=== PATIENT | female | born 1960 | race Two or more races ===

== ENCOUNTER 2024-07-05 13:35 | Emergency (ER) | payer MEDICARE ==
[~2024-07-05] VITALS: Ht 170.2 cm; Wt 62.2 kg
[2024-07-05 15:51] VITALS: BP 133/92; PULSE 66; RESP 14; TEMP 98.2; O2SAT 95
== END 2024-07-05 15:54 | disposition home or self-care (01) ==
LOC: ER 13:35
DX: S62.511A Displaced fracture of proximal phalanx of right thumb, initial encounter for closed fracture (principal); X58.XXXA Exposure to other specified factors, initial encounter; Y93.89 Activity, other specified; Y92.89 Other specified places as the place of occurrence of the external cause; Y99.8 Other external cause status
CPT/HCPCS: 29125

== ENCOUNTER → 2025-03-14 | Outpatient (CLI) | payer MEDICARE, OTHER ==
[2025-03-14 07:14] LABS: Basophils # (auto) 0.1 10 ^3/uL (0-0.2); Eosinophils # (auto) 0.4 10 ^3/uL (0-0.8); Eosinophils % (auto) 6.2 % (0.0-7.0); Hematocrit 42.6 % (36.0-46.0); Hemoglobin 14.5 g/dL (12.2-16.2); Lymphocytes # (auto) 2.5 10 ^3/uL (0.4-5.4); Lymphocytes % (auto) 36.7 % (10.0-50.0); Mean Corpuscular Hgb Conc. 34.2 g/dL (32.0-36.0); Mean Corpuscular Volume 93.5 fL (80.0-100.0); Monocytes # (auto) 0.4 10 ^3/uL (0-1.3); Monocytes % (auto) 5.9 % (0.0-12.0); Neutrophils # (auto) 3.5 10 ^3/uL (1.6-8.6); Neutrophils % (auto) 50.2 % (37.0-80.0); Nucleated Red Blood Cells % 0.1 %; Platelet Count (auto) 257 10^3/uL (140-450); Red Blood Cells 4.55 10^6/uL (4.0-5.20); Red Cell Distribution Width 13.3 % (11.8-14.3); White Blood Cell 6.9 10^3/uL (4.4-10.8)
[2025-03-14 08:19] LABS: Alanine Aminotransferase 29 U/L (7-40); Albumin 4.4 g/dL (3.2-4.8); Alkaline Phosphatase 77 U/L (46-116); Anion Gap 4 (5-15); Aspartate Aminotransferase 24 U/L (13-40); BUN/Creatinine Ratio 15.1 (10.0-20.0); Bilirubin, Total 0.4 mg/dL (0.2-1.0); Blood Urea Nitrogen 11 mg/dL (9-23); Calcium 9.9 mg/dL (8.7-10.4); Chloride 107 mmol/L (98-107); Cholesterol 147 mg/dL (< 200); Glucose 84 mg/dL (74-106); HDL Cholesterol 57 mg/dL (40-59); LDL Cholesterol 62 mg/dL (< 100); Potassium 4.2 mmol/L (3.5-5.1); Sodium 143 mmol/L (136-145); Total Protein 6.4 g/dL (5.7-8.2)
[2025-03-14 08:20] LABS: Bilirubin, Direct < 0.1 mg/dL (<0.3); Carbon Dioxide 32 mmol/L (20-31); Triglycerides 231 mg/dL (< 150)
== END | disposition home or self-care (01) ==
LOC: LAB 06:23
PROVIDERS: ATTEND Specialist
DX: R73.09 Other abnormal glucose (principal); R68.89 Other general symptoms and signs; E03.9 Hypothyroidism, unspecified; D64.9 Anemia, unspecified; I10 Essential (primary) hypertension; E78.5 Hyperlipidemia, unspecified
CPT/HCPCS: 36415; 80053; 80061; 82248; 83036; 84443; 85025

== ENCOUNTER 2025-05-12 06:14 | Outpatient (CLI) | payer MEDICARE, OTHER ==
[2025-05-12 06:37] LABS: Basophils # (auto) 0 10 ^3/uL (0-0.2); Basophils % (auto) 0.5 % (0.0-2.0); Eosinophils # (auto) 0.3 10 ^3/uL (0-0.8); Eosinophils % (auto) 3.5 % (0.0-7.0); Lymphocytes # (auto) 1.6 10 ^3/uL (0.4-5.4); Lymphocytes % (auto) 20.7 % (10.0-50.0); Mean Corpuscular Hemoglobin 31.9 pg (28.0-32.0); Mean Corpuscular Hgb Conc. 34.2 g/dL (32.0-36.0); Mean Corpuscular Volume 93.4 fL (80.0-100.0); Monocytes # (auto) 0.5 10 ^3/uL (0-1.3); Neutrophils # (auto) 5.1 10 ^3/uL (1.6-8.6); Neutrophils % (auto) 68.3 % (37.0-80.0); Platelet Count (auto) 249 10^3/uL (140-450); Red Blood Cells 4.39 10^6/uL (4.0-5.20); Red Cell Distribution Width 13.7 % (11.8-14.3); White Blood Cell 7.5 10^3/uL (4.4-10.8)
[2025-05-12 07:02] LABS: Alanine Aminotransferase 28 U/L (7-40); Albumin 4.4 g/dL (3.2-4.8); Alkaline Phosphatase 83 U/L (46-116); Anion Gap 7 (5-15); Aspartate Aminotransferase 27 U/L (<34); BUN/Creatinine Ratio 14.7 (10.0-20.0); Bilirubin, Direct 0.2 mg/dL (<0.3); Bilirubin, Total 0.5 mg/dL (0.2-1.0); Blood Urea Nitrogen 11 mg/dL (9-23); Calcium 10.2 mg/dL (8.7-10.4); Carbon Dioxide 30 mmol/L (20-31); Cholesterol 152 mg/dL (< 200); Glucose 93 mg/dL (74-106); HDL Cholesterol 54 mg/dL (40-59); LDL Cholesterol 84 mg/dL (< 100); Potassium 3.9 mmol/L (3.5-5.1); Total Protein 6.5 g/dL (5.7-8.2); Triglycerides 131 mg/dL (< 150)
[2025-05-12 07:05] LABS: Chloride 109 mmol/L (98-107); Sodium 146 mmol/L (136-145)
== END 2025-05-12 17:00 | disposition home or self-care (01) ==
LOC: LAB 06:14
PROVIDERS: ATTEND Specialist
DX: I10 Essential (primary) hypertension (principal); E11.9 Type 2 diabetes mellitus without complications; E78.5 Hyperlipidemia, unspecified; R73.09 Other abnormal glucose; R68.89 Other general symptoms and signs; E03.9 Hypothyroidism, unspecified; D64.9 Anemia, unspecified
CPT/HCPCS: 36415; 80053; 80061; 82248; 83036; 84443; 85025

== ENCOUNTER 2025-05-16 10:36 | Emergency (ER) | payer MEDICARE, OTHER ==
[~2025-05-16] VITALS: Ht 170.2 cm; Wt 53.1 kg
--- NOTE | 2025-05-16 11:57 | ED.PDOC ---
History of Present Illness HPI Comments 64-year-old female presents with a chief complaint of right lower extremity pain x 2 months. Patient states that her pain is localized to her right hamstring and behind her right knee. Patient reports that she has had a DVT before and is concerned about getting another one. Patient is requesting an ultrasound. Patient is on blood thinners due to a stent procedure in the past. Pain rated as moderate Therapies tried: none Denies CP/SOB Chief Complaint: Extremity Swelling Time Seen by MD: 11:44 Primary Care Provider: MARIANNE FRASER Reviewed Notes: Medications, Allergies Allergies: Coded Allergies: NO KNOWN ALLERGIES (Unverified , 07/05/24) Information Source: Patient Mode of Arrival: Ambulatory Severity: Moderate Timing: Months Duration: Since onset Prehospital treatment: None Past Medical History PAST MEDICAL HISTORY: Cancer Surgical History: Denies all surgeries GENERAL OFFICE DISPATCHER History: Denies all GENERAL OFFICE DISPATCHER Hx Family History Family History: Reviewed,noncontributory to illness Social History Smoker: Cigarettes, Less Than 1 Pack/Day Alcohol: Denies ETOH Use Drugs: Denies Drug Use Lives In: Home All Other Systems: Reviewed and Negative ( PER HPI) Physical Exam General Appearance: No Apparent Distress, Normal HEENT: Normal ENT Inspection, Pharynx Normal, TMs Normal Neck: Full Range of Motion, Non-Tender, Normal, Normal Inspection Respiratory: Chest Non-Tender, Lungs Clear, No Accessory Muscle Use, No Respiratory Distress, Normal Breath Sounds Cardiovascular: No Edema, No JVD, No Murmur, No Gallop, Normal Peripheral Pulses, Regular Rate/Rhythm Breast Exam: Deferred Gastrointestinal: No Organomegaly, Non Tender, No Pulsatile Mass, Normal Bowel Sounds, Soft Genitalia: Deferred Pelvic: Deferred Rectal: Deferred Extremities: No calf tenderness, Normal capillary refill, Normal inspection, Normal range of motion, Non-tender, No pedal edema, Other (NO GROSS ABNORMALITIES, NO EDEMA, NO ERYTHEMA.) Musculoskeletal : Apperance: Normal Neurologic: Alert, 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 Was a procedure done?: No Differential Dx Considerations may include: dvt, thrombophlebitis, strain, X-Ray, Labs, Meds, VS Vital Signs Date Time Temp Pulse Resp B/P (MAP) Pulse Ox O2 Delivery O2 Flow Rate FiO2 05/16/25 11:04 68 05/16/25 10:52 98.8 76 16 165/87 (113) 96 98.8 X-Ray, Labs, Meds, VS Comment 64-year-old female presents with a chief complaint of right lower extremity pain x 2 months. Patient arrives alert and oriented, ABC's intact, afebrile, vital signs stable, saturating well in room air Diagnostic imaging ordered by me and results interpreted by radiology : CHEST X- RAY, DVT US RLE The patient presents with signs and symptoms concerning for deep venous thromb osis. The differential diagnosis includes but is not limited to: DVT, thrombophlebitis, trauma, venous stasis, peripheral edema, cellulitis. Patients work up was negative The patient was overall stable while in the ED. They had normal oxygenation on room air and did not require any supplemental oxygen. Heart rate has remained stable while in the ED. Nontoxic appearing. No lymphangitic spread visible. No fluid pockets or fluctuance concerning for abscess. Low concern for cellulitis or osteomyelitis. All questions answered. The patient was given strict return precautions to ED for shortness of breath, increasing pain, paresthesia, or change in color of their extremity. The patient was advised to follow up with primary care provider for re-evaluation and continued management. Additional MDM Review of External, Non-ED records: External records reviewed. Discussion with independent historian (EMS, family) history obtained from the patient/parents (if applicable) at bedside Chronic conditions affecting care: None Social determinants of health affecting care: None Consideration of admission (observation or admission): I considered escalation of care to admission for this patient, however given the reassuring workup, the patient is safe for outpatient management. Time of 1ST Reevaluation: 12:14 Reevaluation 1ST: Unchanged Time of 2ND Reevaluation: 13:20 Patient Education/Counseling: Diagnosis, Treatment Family Education/Counseling: Diagnosis, Treatment SEPSIS Sepsis Screen Physician Orders Electrocardigram (05/16/25 11:13) Complete Blood Count (05/16/25 11:48) Basic Metabolic Panel (05/16/25 11:48) Chest Two Views Routine (05/16/25 11:48) Rt Lower Dvt (05/16/25 11:48) Vital Signs Date Time Temp Pulse Resp B/P (MAP) Pulse Ox O2 Delivery O2 Flow Rate FiO2 05/16/25 11:04 68 05/16/25 10:52 98.8 76 16 165/87 (113) 96 98.8 Departure 1 Departure Time of Disposition: 13:21 Impression: Primary Impression: Leg pain Qualified Codes: M79.604 - Pain in right leg Additional Impression: Cough Qualified Codes: R05.1 - Acute cough Disposition: 01 HOME / SELF CARE / HOMELESS Condition: Fair e-Prescriptions Benzonatate (Benzonatate) 100 Mg Cap 1 CAP PO TID for 10 Days, #30 CAP 0 Refills Prov: JORGE ADDISON MANAGER CREATIVE 05/16/25 Critical Care Note Critical Care Time?: No Stability Stability form required: No Heart Score Heart Score: Heart Score Response (Comments) Value History N/A 0 EKG N/A 0 Age N/A 0 Risk Factors N/A 0 Troponin N/A 0 Total 0 I personally scribed for JORGE ADDISON NP ([email or web address]) on 05/16/25 at 11:57. Electronically submitted by Mario Decker ([email or web address]). JORGE ADDISON NP May 16, 2025 11:57
--- NOTE | 2025-05-16 12:22 | DVH ---
XY CHEST TWO VIEWS ROUTINE, HISTORY: cough, r/o pna COMPARISON: None None TECHNICAL DATA: 2 view of the chest was obtained. FINDINGS: Lines and tubes: None Cardiomediastinal silhouette: normal Pulmonary vasculature: normal Lung expansion: normal Lung airspace: normal Lung interstitium: normal Pleura: normal Pneumothorax: no Bones: Unremarkable Other: no IMPRESSION: No acute intrathoracic abnormality.
--- NOTE | 2025-05-16 12:40 | DVH ---
Right lower extremity venous duplex Clinical History: sudden posterior leg pain Comparison: None Technique: Duplex Doppler evaluation of the deep venous system of the right lower extremity from the common femo ral vein to the popliteal vein including color Doppler and spectral/pulsed waveform analysis was perf ormed. Findings: The common femoral vein demonstrates appropriate compressibility and waveform variability. There is compressibility/patency of the great saphenous vein at the proximal thigh. The femoral vein demonstrates appropriate compressibility and waveform variability. The deep femoral vein demonstrates appropriate compressibility and waveform variability. The popliteal vein demonstrates appropriate compressibility and waveform variability. There is normal compressibility at the tibioperoneal trunk. Impression: No right femoropopliteal venous thrombosis.
[2025-05-16] MEDS ORDERED: BENZ100C97 PO (13:22)
[2025-05-16 13:47] VITALS: BP 141/75; PULSE 99; RESP 18; TEMP 98.3; O2SAT 96
--- NOTE | 2025-05-17 06:56 | ECG ---
[facility] Test Date: 2025-05-16 Test Time: 11:04:31 Pat Name: BEATRIZ DAVILA Department: ED Room: Gender: F Composition Professor: TAMI : [id number] Requested By: JORGE ADDISON Order Number: [id number] Reading MD: Measurements Intervals [place] Rate: 68 P: 86 HI: 186 QRS: 80 QRSD: 70 T: 76 QT: 399 QTc: 425 Interpretive Statements Sinus rhythm Biatrial enlargement Please click the below link to view image of tracing.
== END 2025-05-16 13:52 | disposition home or self-care (01) ==
LOC: ER 10:36
DX: M79.661 Pain in right lower leg (principal); R05.9 Cough, unspecified; F17.210 Nicotine dependence, cigarettes, uncomplicated
CPT/HCPCS: 71046; 93005; 93971

== ENCOUNTER 2025-06-30 06:41 | Outpatient (CLI) | payer MEDICARE, OTHER ==
[~2025-06-30 06:41] MED LIST: BENZ100C97 PO
[2025-06-30 07:18] LABS: Hematocrit 37.3 % (36.0-46.0); Hemoglobin 12.8 g/dL (12.2-16.2); Mean Corpuscular Hemoglobin 32.7 pg (28.0-32.0); Mean Corpuscular Volume 95.1 fL (80.0-100.0); Nucleated Red Blood Cells % 0.0 %
[2025-06-30 08:27] LABS: Alanine Aminotransferase 42 U/L (7-40); Albumin 4.2 g/dL (3.2-4.8); Alkaline Phosphatase 71 U/L (46-116); Anion Gap 4 (5-15); BUN/Creatinine Ratio 19.4 (10.0-20.0); Bilirubin, Direct 0.1 mg/dL (<0.3); Bilirubin, Total 0.4 mg/dL (0.2-1.0); Blood Urea Nitrogen 14 mg/dL (9-23); Calcium 9.2 mg/dL (8.7-10.4); Carbon Dioxide 31 mmol/L (20-31); Chloride 110 mmol/L (98-107); Cholesterol 132 mg/dL (< 200); Glucose 83 mg/dL (74-106); HDL Cholesterol 54 mg/dL (40-59); Potassium 3.9 mmol/L (3.5-5.1); Sodium 145 mmol/L (136-145); Total Protein 5.9 g/dL (5.7-8.2); Triglycerides 90 mg/dL (< 150)
== END 2025-06-30 17:00 | disposition home or self-care (01) ==
LOC: LAB 06:41
PROVIDERS: ATTEND Internal Medicine
DX: I11.0 Hypertensive heart disease with heart failure (principal); I50.9 Heart failure, unspecified; E78.5 Hyperlipidemia, unspecified; E03.9 Hypothyroidism, unspecified; E11.9 Type 2 diabetes mellitus without complications; D64.9 Anemia, unspecified; R68.89 Other general symptoms and signs
CPT/HCPCS: 36415; 80053; 80061; 82248; 83036; 84443; 85025

== ENCOUNTER 2025-08-10 15:07 | Emergency (ER) | payer MEDICARE, OTHER ==
[~2025-08-10] VITALS: Ht 170.2 cm; Wt 53.1 kg
--- NOTE | 2025-08-10 15:30 | ED.PDOC ---
HPI Comments This is a 64 year old female presenting to the ED with chief complaint of chest pain. Patient reports that she has been experiencing intermittent left sided chest pains for the past month. Patient relays that she usually uses NTG with relief noted, however, it has not worked as of recently. Patient states that she has associated fatigue, worrying her to come into the ED. Patient states she has not contacted her manager mechanical regarding her concern. Patient denies any SOB, d izziness, headache, syncope, fever, or abdominal pain. Chief Complaint: Chest Pain Time Seen by MD: 15:28 Primary Care Provider: MARIANNE FRASER Reviewed Notes: Nurses Notes, Medications, Allergies Allergies: Coded Allergies: NO KNOWN ALLERGIES (Unverified , 07/05/24) Home Meds Active Scripts Benzonatate (Benzonatate) 100 Mg Cap, 1 CAP PO TID for 10 Days, #30 CAP 0 Refills Prov:AZAELJORGE BINDING STITCHER 05/16/25 Information Source: Patient, Spouse Mode of Arrival: Ambulatory Severity: Moderate Timing: Months Duration: Since onset Prehospital treatment: None Location: Chest (L) Radiation: No Radiation Quality: Sharp Onset: At Rest Cardiac Risk Factors: Smoker, Hyperlipidemia, HTN History of: Similar pain in past, SD Past Medical History PAST MEDICAL HISTORY: Cancer, High Lipids, HTN, SD Past Medical History (Other): Scoliosis Surgical History: PTCA INCIDENT HANDLER History: Denies all INCIDENT HANDLER Hx Family History Family History: Reviewed,noncontributory to illness Social History Smoker: Cigarettes, Less Than 1 Pack/Day Alcohol: Denies ETOH Use Drugs: Denies Drug Use Lives In: Home Constitutional: reports: fatigue; denies: chills, diaphoresis, fever, malaise, sweats, weakness, others EENTM: denies: blurred vision, double vision, ear bleeding, ear discharge, ear drainage, ear pain, ear ringing, eye pain, eye redness, hearing loss, mouth pain, mouth swelling, nasal discharge, nose bleeding, nose congestion, nose pain, photophobia, tearing, throat pain, throat swelling, voice changes, others Respiratory: denies: cough, hemoptysis, orthopnea, SOB at rest, shortness of breath, SOB with excertion, stridor, wheezing, others Cardiovascular: reports: chest pain; denies: dizzy spells, diaphoresis, Dyspnea on exertion, edema, irregular heart beat, left arm pain, lightheadedness, palpitations, PND, syncope, others Gastrointestinal: denies: abdomen distended, abdominal pain, blood streaked bowels, constipated, diarrhea, dysphagia, difficulty swallowing, hematemesis, melena, nausea, poor appetite, poor fluid intake, rectal bleeding, rectal pain, vomiting, others Genitourinary: denies: abnormal vagina bleeding, burning, dyspareunia, dysuria, flank pain, frequency, hematuria, incontinence, pain, , vagina discharge, urgency, others Neurological: denies: dizziness, fainting, headache, left sided numbness, left sided weakness, numbness, paresthesia, pre-existing deficit, right sided numbness, right sided weakness, seizure, speech problems, tingling, tremors, weakness, others Musculoskeletal: denies: back pain, gout, joint pain, joint swelling, muscle pain, muscle stiffness, neck pain, others Integumetry: denies: bruises, change in color, change in hair/nails, dryness, laceration, lesions, lumps, rash, wounds, others Allergic/Immunocompromised: denies: Difficulty Healing, Frequent Infections, Hives, Itching, others Hematologic/Lymphatic: denies: anemia, blood clots, easy bleeding, easy bruising, swollen glands, others Endocrine: denies: excessive hunger, excessive sweating, excessive thirst, excessive urination, flushing, intolerance to cold, intolerance to heat, unexplained weight gain, unexplained weight loss, others Psychiatric: denies: anxiety, bipolar disorder, depression, hopeless, panic disorder, schizophrenia, sleepless, suicidal, others All Other Systems: Reviewed and Negative Physical Exam General Appearance: No Apparent Distress, Normal HEENT: Normal ENT Inspection, Pharynx Normal, TMs Normal Neck: Full Range of Motion, Non-Tender, Normal, Normal Inspection Respiratory: Chest Non-Tender, Lungs Clear, No Accessory Muscle Use, No Respiratory Distress, Normal Breath Sounds Cardiovascular: No Edema, No JVD, No Murmur, No Gallop, Normal Peripheral Pulses, Regular Rate/Rhythm Breast Exam: Deferred Gastrointestinal: No Organomegaly, Non Tender, No Pulsatile Mass, Normal Bowel Sounds, Soft Genitalia: Deferred Pelvic: Deferred Rectal: Deferred Extremities: No calf tenderness, Normal capillary refill, Normal inspection, Normal range of motion, Non-tender, No pedal edema Musculoskeletal : Apperance: Normal Neurologic: Alert, middle school reading teacher II-XII nml as Tested, No Motor Deficits, Normal Affect, Normal Mood, No Sensory Deficits Cerebellar Function: Normal Reflexes: Normal Skin: Dry, Normal Color, Warm Lymphatic: No Adenopathy Was a procedure done? Was a procedure done?: No X-Ray, Labs, Meds, VS Vital Signs Date Time Temp Pulse Resp B/P (MAP) Pulse Ox O2 Delivery O2 Flow Rate FiO2 08/10/25 15:11 97.4 84 16 129/64 95 97.4 Time of 1ST Reevaluation: 16:27 Reevaluation 1ST: Unchanged Patient Education/Counseling: Diagnosis, Treatment Family Education/Counseling: Diagnosis, Treatment SEPSIS Sepsis Screen Date sepsis recognized/suspect: Aug 10, 2025 Time Sepsis recognized/suspect: 1513 Recent Procedure: No On Antibiotic Therapy: No Respiratory Rate >20: No Heart Rate >90: No Temp<36 C (96.8 F) or >38.3 C: No SBP <90 or MAP <65 mmHG: No New Acute Mental Status Change: No Is the patient on CPAP, BIPAP,: No Physician Orders Electrocardigram (08/10/25 15:08) Troponin-I Hs (08/10/25 15:08) Electrocardigram (08/10/25 16:08) Electrocardigram (08/10/25 18:08) Troponin-I Hs (08/10/25 16:08) Troponin-I Hs (08/10/25 18:08) Complete Blood Count (08/10/25 15:23) Basic Metabolic Panel (08/10/25 15:23) Urinalysis (08/10/25 15:23) Drug Screen (08/10/25 15:23) Vital Signs Date Time Temp Pulse Resp B/P (MAP) Pulse Ox O2 Delivery O2 Flow Rate FiO2 08/10/25 15:11 97.4 84 16 129/64 95 97.4 Critical Care Note Critical Care Time?: No Stability Stability form required: No Heart Score Heart Score: Heart Score Response (Comments) Value History Highly Suspicious 2 EKG Normal 0 Age >65 2 Risk Factors >3 or Hx ASHD 2 Total 6 I personally scribed for BE ROSS MD ([email or web address]) on 08/10/25 at 15:30. Electronically submitted by Tio Solares ([email or web address]). I personally scribed for BE ROSS MD ([email or web address]) on 08/10/25 at 15:32. Electronically submitted by Tio Solares ([email or web address]). BE ROSS MD Aug 10, 2025 15:30
--- NOTE | 2025-08-10 15:34 | ED.PDOC ---
HPI Comments This is a 64 year old female presenting to the ED with chief complaint of chest pain. Patient reports that she has been experiencing intermittent left sided chest pains for the past month. Patient relays that she usually uses NTG with relief noted, however, it has not worked as of recently. Patient states that she has associated fatigue, worrying her to come into the ED. Patient states she has not contacted her benefits assistant regarding her concern. Patient denies any SOB, d izziness, headache, syncope, fever, or abdominal pain. Vital signs were stable at arrival. Chief Complaint: Chest Pain Time Seen by MD: 15:32 Primary Care Provider: MARIANNE FRASER Reviewed Notes: Nurses Notes, Medications, Allergies Allergies: Coded Allergies: NO KNOWN ALLERGIES (Unverified , 07/05/24) Home Meds Active Scripts Benzonatate (Benzonatate) 100 Mg Cap, 1 CAP PO TID for 10 Days, #30 CAP 0 Refills Prov:JORGE ADDISON Sherry ELECTRICAL CAD TECHNICIAN 05/16/25 Information Source: Patient, Friend, Spouse Mode of Arrival: Ambulatory Severity: Moderate Timing: Months Duration: Since onset Prehospital treatment: None Location: Chest (L) Quality: Sharp Onset: At Rest Cardiac Risk Factors: Smoker, Hyperlipidemia, HTN History of: Similar pain in past, [place] Associated Signs and Symptoms: Other (Fatigue) Past Medical History PAST MEDICAL HISTORY: Cancer, High Lipids, HTN, [place] Past Medical History (Other): Scoliosis 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 Hx Family History Family History: Reviewed,noncontributory to illness Social History Smoker: Cigarettes, Less Than 1 Pack/Day Alcohol: Denies ETOH Use Drugs: Denies Drug Use Lives In: Home Constitutional: reports: fatigue; denies: chills, diaphoresis, fever, malaise, sweats, weakness, others EENTM: denies: blurred vision, double vision, ear bleeding, ear discharge, ear drainage, ear pain, ear ringing, eye pain, eye redness, hearing loss, mouth pain, mouth swelling, nasal discharge, nose bleeding, nose congestion, nose pain, photophobia, tearing, throat pain, throat swelling, voice changes, others Respiratory: denies: cough, hemoptysis, orthopnea, SOB at rest, shortness of breath, SOB with excertion, stridor, wheezing, others Cardiovascular: reports: chest pain; denies: dizzy spells, diaphoresis, Dyspnea on exertion, edema, irregular heart beat, left arm pain, lightheadedness, palpitations, PND, syncope, others Gastrointestinal: denies: abdomen distended, abdominal pain, blood streaked bowels, constipated, diarrhea, dysphagia, difficulty swallowing, hematemesis, melena, nausea, poor appetite, poor fluid intake, rectal bleeding, rectal pain, vomiting, others Genitourinary: denies: abnormal vagina bleeding, burning, dyspareunia, dysuria, flank pain, frequency, hematuria, incontinence, pain, , vagina discharge, urgency, others Neurological: denies: dizziness, fainting, headache, left sided numbness, left sided weakness, numbness, paresthesia, pre-existing deficit, right sided numbness, right sided weakness, seizure, speech problems, tingling, tremors, weakness, others Musculoskeletal: denies: back pain, gout, joint pain, joint swelling, muscle pain, muscle stiffness, neck pain, others Integumetry: denies: bruises, change in color, change in hair/nails, dryness, laceration, lesions, lumps, rash, wounds, others Allergic/Immunocompromised: denies: Difficulty Healing, Frequent Infections, Hives, Itching, others Hematologic/Lymphatic: denies: anemia, blood clots, easy bleeding, easy bruising, swollen glands, others Endocrine: denies: excessive hunger, excessive sweating, excessive thirst, excessive urination, flushing, intolerance to cold, intolerance to heat, unexplained weight gain, unexplained weight loss, others Psychiatric: denies: anxiety, bipolar disorder, depression, hopeless, panic disorder, schizophrenia, sleepless, suicidal, others All Other Systems: Reviewed and Negative Physical Exam General Appearance: Moderate Distress ([id number] distress due to chest pain concerns.), Normal HEENT: Normal ENT Inspection, Pharynx Normal, TMs Normal Neck: Full Range of Motion, Non-Tender, Normal, Normal Inspection Respiratory: Lungs Clear, No Accessory Muscle Use, No Respiratory Distress, Normal Breath Sounds, Other (Diffuse substernal chest pain radiating towards the left shoulder. No signs of trauma. Unable to elicit additional pain on palpation.) Cardiovascular: No Edema, No JVD, No Murmur, No Gallop, Normal Peripheral Pulses, Regular Rate/Rhythm Breast Exam: Deferred Gastrointestinal: No Organomegaly, Non Tender, No Pulsatile Mass, Normal Bowel Sounds, Soft Genitalia: Deferred Pelvic: Deferred Rectal: Deferred Extremities: No calf tenderness, Normal capillary refill, Normal inspection, Normal range of motion, Non-tender, No pedal edema Musculoskeletal : Apperance: Normal Neurologic: Alert, No Motor Deficits, Normal Affect, Normal Mood, No Sensory Deficits Cerebellar Function: NOT DONE Reflexes: NOT DONE Skin: Dry, Normal Color, Warm Lymphatic: No Adenopathy Was a procedure done? Was a procedure done?: No CP Differential Dx Differential Diagnosis: A-fib, AV Block 1st Degree, [place] Differential Diagnosis: CHF, HTN Essential Differential Diagnosis: Angina, Chest Wall Pain, Costochondritis X-Ray, Labs, Meds, VS Vital Signs Date Time Temp Pulse Resp B/P (MAP) Pulse Ox O2 Delivery O2 Flow Rate FiO2 08/10/25 18:30 122/45 08/10/25 18:02 70 08/10/25 16:02 68 08/10/25 15:17 71 08/10/25 15:11 97.4 84 16 129/64 95 97.4 Lab Test 08/10/25 17:17 08/10/25 16:30 08/10/25 15:30 Range/Units Urine Color Yellow Yellow Urine Clarity Turbid H Clear Urine pH 6.0 5.0-9.0 Urine Specific [place] 1.021 1.001-1.035 Urine Protein 1+ H Negative Urine Ketones Trace Negative Urine Blood Negative Negative /uL Urine Nitrite Negative Negative Urine Bilirubin Negative Negative Urine Urobilinogen 2 H Negative mg/dL Urine Leukocyte Esterase Negative Negative /uL Urine RBC 2 0 - 4 /hpf Urine Microscopic WBC 5 0-5 /HPF Urine Squamous Epithelial Cells Few <5 /hpf Urine Bacteria Few H None Seen /hpf Urine Hyaline Casts Few 0 - 2 /lpf Urine Mucus Few None Seen Urine Glucose Normal Normal mg/dL Urine Opiates Screen Neg NEGATIVE Urine Fentanyl Screen Neg NEGATIVE Urine Barbiturates Screen Neg NEGATIVE Urine Phencyclidine Screen Neg NEGATIVE Urine Amphetamines Screen Neg NEGATIVE Urine Benzodiazepines Screen Neg NEGATIVE Urine Cocaine Screen Neg NEGATIVE Urine Cannabinoids Screen Neg NEGATIVE Troponin I High Sensitivity 5 5 </=34 ng/L White Blood Count 10.1 4.4-10.8 10^3/uL Red Blood Count 4.52 4.0-5.20 10^6/uL Hemoglobin 14.7 12.2-16.2 g/dL Hematocrit 42.5 36.0-46.0 % Mean Corpuscular Volume 93.9 80.0-100.0 fL Mean Corpuscular Hemoglobin 32.4 H 28.0-32.0 pg Mean Corpuscular Hemoglobin Concent 34.5 32.0-36.0 g/dL Red Cell Distribution Width 13.0 11.8-14.3 % Platelet Count 267 140-450 10^3/uL Mean Platelet Volume 7.9 6.9-10.8 fL Neutrophils (%) (Auto) 66.5 37.0-80.0 % Lymphocytes (%) (Auto) 24.3 10.0-50.0 % Monocytes (%) (Auto) 7.4 0.0-12.0 % Eosinophils (%) (Auto) 1.3 0.0-7.0 % Basophils (%) (Auto) 0.5 0.0-2.0 % Neutrophils # (Auto) 6.8 1.6-8.6 10 ^3/uL Lymphocytes # (Auto) 2.5 0.4-5.4 10 ^3/uL Monocytes # (Auto) 0.7 0-1.3 10 ^3/uL Eosinophils # (Auto) 0.1 0-0.8 10 ^3/uL Basophils # (Auto) 0.1 0-0.2 10 ^3/uL Nucleated Red Blood Cells 0.1 % Sodium Level 145 136-145 mmol/L Potassium Level 4.2 3.5-5.1 mmol/L Chloride Level 108 H 98-107 mmol/L Carbon Dioxide Level 29 20-31 mmol/L Anion Gap 8 5-15 Blood Urea Nitrogen 15 9-23 mg/dL Creatinine 0.89 0.550-1.02 mg/dL Glomerular Filtration Rate Calc 71 >90 mL/min BUN/Creatinine Ratio 16.9 10.0-20.0 Serum Glucose 96 74-106 mg/dL Calcium Level 9.7 8.7-10.4 mg/dL Current Medications Medications (Trade) Dose Ordered Sig/Kaiden Route Start Time Stop Time Status Last Admin Nitroglycerin (Ntrostat Sublingual) 0.4 mg ONCE ONCE SL 08/10/25 15:30 08/10/25 15:31 DC 08/10/25 18:30 X-Ray, Labs, Meds, VS Comment All studies performed the ED were evaluated by me personally. Serum laboratories studies were unremarkable for any systemic concerns including unremarkable cardiac markers. EKG revealed a sinus rhythm with a rate of 71. Bilateral atrial enlargement noted. AL interval 162 and QT interval of 398. Relatively unremarkable EKG. Patient will need to follow up with the primary care provider and benefits assistant for continued management of what has become recurrent chest pain concerns. Time of 1ST Reevaluation: 18:53 Reevaluation 1ST: Improved Consultation: PCP, Cardiology Patient Education/Counseling: Diagnosis, Treatment Family Education/Counseling: Diagnosis, Treatment SEPSIS Sepsis Screen Date sepsis recognized/suspect: Aug 10, 2025 Time Sepsis recognized/suspect: 1513 Recent Procedure: No On Antibiotic Therapy: No Respiratory Rate >20: No Heart Rate >90: No Temp<36 C (96.8 F) or >38.3 C: No SBP <90 or MAP <65 mmHG: No New Acute Mental Status Change: No Is the patient on CPAP, BIPAP,: No Physician Orders Electrocardigram (08/10/25 16:08) Electrocardigram (08/10/25 18:08) Vital Signs Date Time Temp Pulse Resp B/P (MAP) Pulse Ox O2 Delivery O2 Flow Rate FiO2 08/10/25 18:30 122/45 08/10/25 18:02 70 08/10/25 16:02 68 08/10/25 15:17 71 08/10/25 15:11 97.4 84 16 129/64 95 97.4 Laboratory Tests Test 08/10/25 15:30 White Blood Count 10.1 10^3/uL (4.4-10.8) Medications Medications Dose Ordered Sig/Kaiden Route Start Time Stop Time Status Last Admin Dose Admin Nitroglycerin 0.4 mg ONCE ONCE SL 08/10/25 15:30 08/10/25 15:31 DC 08/10/25 18:30 Departure 1 Departure Time of Disposition: 18:53 Impression: Primary Impression: Chest pain Disposition: 01 HOME / SELF CARE / HOMELESS Condition: Stable Additional Instructions: Advised medication as needed and additionally, patient should follow up with the primary care provider and benefits assistant for continued evaluation of chest pain concerns. e-Prescriptions Nitroglycerin (Nitrostat) 0.4 Mg Sub 0.4 MG SL Q12HP PRN, #10 INJ Prov: ADONAY,KENNY B PAC 08/10/25 Discharged With: Self, Friend Critical Care Note Critical Care Time?: No Stability Stability form required: No Heart Score Heart Score: Heart Score Response (Comments) Value History Slightly Suspicious 0 EKG Normal 0 Age >65 2 Risk Factors >3 or Hx ASHD 2 Troponin Normal limit 0 Total 4 I personally scribed for KENNY URIAS PAC ([email or web address]) on 08/10/25 at 15:33. Electronically submitted by Tio Solares ([email or web address]). KENNY URIAS PAC Aug 10, 2025 15:33
[2025-08-10 15:46] LABS: Hematocrit 42.5 % (36.0-46.0); Hemoglobin 14.7 g/dL (12.2-16.2); Mean Corpuscular Hemoglobin 32.4 pg (28.0-32.0); Mean Corpuscular Volume 93.9 fL (80.0-100.0); Nucleated Red Blood Cells % 0.1 %
[2025-08-10 15:53] LABS: Potassium 4.2 mmol/L (3.5-5.1); Sodium 145 mmol/L (136-145)
[2025-08-10 15:54] LABS: Anion Gap 8 (5-15); Calcium 9.7 mg/dL (8.7-10.4); Carbon Dioxide 29 mmol/L (20-31); Chloride 108 mmol/L (98-107)
[2025-08-10 15:59] LABS: BUN/Creatinine Ratio 16.9 (10.0-20.0); Blood Urea Nitrogen 15 mg/dL (9-23); Glucose 96 mg/dL (74-106)
--- NOTE | 2025-08-10 18:04 | ECG ---
[facility] Test Date: 2025-08-10 Test Time: 15:59:25 Pat Name: BEATRIZ DAVILA Department: ED Room: Gender: F Occupational Therapy Assistant: KRISTINA : 1960 Requested By: BE ROSS Order Number: [id number] Reading MD: Mejia Cordero Measurements Intervals [place] Rate: 68 P: 74 [place]: 162 QRS: 76 QRSD: 96 T: 82 QT: 404 QTc: 430 Interpretive Statements Sinus rhythm Biatrial enlargement Electronically Signed On 08-14-2025 18:37:59 PDT by Mejia Cordero Please click the below link to view image of tracing.
[2025-08-10] MEDS: NITROGLYCERIN 0.4 MG SL TAB SL ONE (18:30)
[2025-08-10 18:31] LABS: Urine Protein, UAD 1+ (Negative)
[2025-08-10 18:32] LABS: Opiate Scree,Urine Neg (NEGATIVE)
[2025-08-10 18:44] LABS: Amphetamine Screen, Urine Neg (NEGATIVE); Barbiturate Scree,Urine Neg (NEGATIVE); Benzodiazephine Screen, Urine Neg (NEGATIVE); Cannabinoid Screen, Urine Neg (NEGATIVE); Cocaine Screen, Urine Neg (NEGATIVE); Phencyclidine Screen, Urine Neg (NEGATIVE)
[2025-08-10] MEDS ORDERED: NITR0.4S29 SL (18:54)
[2025-08-10 20:37] VITALS: BP 134/61; PULSE 63; RESP 20; TEMP 98.4; O2SAT 96
--- NOTE | 2025-08-14 08:06 | ECG ---
[facility] Test Date: 2025-08-10 Test Time: 18:00:43 Pat Name: BEATRIZ DAVILA Department: ED Room: Gender: F Info Specialist: KRISTINA : 1960 Requested By: BE ROSS Order Number: [id number] Reading MD: Mejia Cordero Measurements Intervals [place] Rate: 70 P: 78 [place]: 171 QRS: 79 QRSD: 70 T: 83 QT: 412 QTc: 445 Interpretive Statements Sinus rhythm Biatrial enlargement Electronically Signed On 08-14-2025 18:38:42 PDT by Mejia Cordero Please click the below link to view image of tracing.
== END 2025-08-10 20:42 | disposition home or self-care (01) ==
LOC: ER 15:09
DX: R07.89 Other chest pain (principal); F17.210 Nicotine dependence, cigarettes, uncomplicated; I10 Essential (primary) hypertension; E78.5 Hyperlipidemia, unspecified; M41.9 Scoliosis, unspecified; I25.2 Old myocardial infarction; Z79.899 Other long term (current) drug therapy
CPT/HCPCS: 36415; 80048; 80307; 81001; 84484; 85025; 93005